=== PATIENT | female | born 1960 | race Caucasian/White ===

== ENCOUNTER → 2016-07-29 | Outpatient (CLI) | payer BC ==
--- NOTE | 2016-08-01 08:21 | XR ---
Fourth digit right hand HISTORY: Trauma and pain, dislocation 2 views of the fourth digit of the right hand. No comparisons Small sclerotic focus at the tuft of the fourth digit is nonaggressive and could represent a small [place]. Digit is flexed distally, correlate to exclude ligamentous injury. IMPRESSION: No acute osseous abnormality, additional findings above. Follow-up as indicated.
== END | disposition home or self-care (01) ==
LOC: RADXRYALE 10:05
PROVIDERS: ATTEND Family Medicine
DX: S63.259A Unspecified dislocation of unspecified finger, initial encounter (principal); X58.XXXA Exposure to other specified factors, initial encounter

== ENCOUNTER → 2017-02-17 | Outpatient (CLI) | payer BC ==
--- NOTE | 2017-02-21 11:25 | MM ---
Reason for exam: screening (asymptomatic). Last mammogram was performed 9 years and 7 months ago. Physical Findings: A clinical breast exam by your physician is recommended on an annual basis and results should be correlated with mammographic findings. MG Screening Mammo w CAD Bilateral CC and MLO view(s) were taken. Prior study comparison: July 23, 2007, bilateral screening mammogram w/CAD. There are scattered fibroglandular densities. ASSESSMENT: Negative, BI-RAD 1 RECOMMENDATION: Routine screening mammogram of both breasts in 1 year.
== END | disposition home or self-care (01) ==
LOC: RADMAMWWP 08:51
PROVIDERS: ATTEND Family Medicine
DX: Z12.31 Encounter for screening mammogram for malignant neoplasm of breast (principal)

== ENCOUNTER → 2017-12-04 | Outpatient (CLI) | payer BC ==
--- NOTE | 2017-12-04 10:20 | XR ---
EXAMINATION TYPE: XR knee complete RT DATE OF EXAM: 12/04/2017 COMPARISON: NONE HISTORY: Pain TECHNIQUE: Four views are submitted. FINDINGS: Joint spaces are preserved. Osseous structures are intact. No acute fracture seen. Postsurgical ch von involving the tibia with diffuse osteopenia. Arthropathy of the knee joint. Arthropathy of the p atellofemoral joint. IMPRESSION: 1. No acute fracture or dislocation. 2. Arthritic changes with postsurgical changes.
--- NOTE | 2017-12-04 10:27 | XR ---
EXAMINATION TYPE: XR shoulder complete RT DATE OF EXAM: 12/04/2017 COMPARISON: NONE HISTORY: Pain TECHNIQUE: Three views are submitted. FINDINGS: The osseous structures are intact. There is no acute fracture or dislocation. The AC joint is there is significant arthropathy of the AC joint. IMPRESSION: 1. No acute process.
== END | disposition home or self-care (01) ==
LOC: RADXRYALE 09:34
PROVIDERS: ATTEND Family Medicine
DX: M17.11 Unilateral primary osteoarthritis, right knee (principal); M25.511 Pain in right shoulder; Z98.890 Other specified postprocedural states

== ENCOUNTER → 2019-05-09 | Outpatient (CLI) | payer BC ==
--- NOTE | 2019-05-10 11:41 | MM ---
Reason for exam: screening (asymptomatic). Last mammogram was performed 2 years and 3 months ago. Physical Findings: A clinical breast exam by your physician is recommended on an annual basis and results should be correlated with mammographic findings. MG 3D Screening Mammo W/Cad Bilateral CC and MLO view(s) were taken. Prior study comparison: February 17, 2017, bilateral MG screening mammo w CAD. July 23, 2007, bilateral screening mammogram w/CAD. The breast tissue is heterogeneously dense. This may lower the sensitivity of mammography. There is no discrete abnormality. ASSESSMENT: Negative, BI-RAD 1 RECOMMENDATION: Routine screening mammogram of both breasts in 1 year.
== END | disposition home or self-care (01) ==
LOC: RADMAMWWP 14:54
PROVIDERS: ATTEND Family Medicine
DX: Z12.31 Encounter for screening mammogram for malignant neoplasm of breast (principal)
CPT/HCPCS: 77063; 77067

== ENCOUNTER → 2020-11-02 | Outpatient (CLI) | payer BC ==
[2020-11-02 10:14] LABS: Basophils % (A) 0 %; Eosinophils # (A) 0.1 k/uL (0-0.7); Eosinophils % (A) 1 %; HCT 39.5 % (34.0-46.0); HGB 13.9 gm/dL (11.4-16.0); Lymphocytes # (A) 1.1 k/uL (1.0-4.8); Lymphocytes % (A) 15 %; MCH 29.4 pg (25.0-35.0); MCHC 35.1 g/dL (31.0-37.0); MCV 83.7 fL (80.0-100.0); Mean Platelet Volume 7.2; Monocytes # (A) 0.5 k/uL (0-1.0); Monocytes % (A) 7 %; Neutrophils # (A) 5.4 k/uL (1.3-7.7); Neutrophils % (A) 75 %; Platelet Count 206 k/uL (150-450); RBC 4.72 m/uL (3.80-5.40); RDW 12.6 % (11.5-15.5); WBC 7.2 k/uL (3.8-10.6)
== END | disposition home or self-care (01) ==
LOC: LABPAT 08:25
PROVIDERS: ATTEND Obstetrics & Gynecology
DX: Z01.818 Encounter for other preprocedural examination (principal)
CPT/HCPCS: 36415; 85025

== ENCOUNTER 2020-11-09 06:14 | Day surgery (SDC) | payer BC ==
[2020-11-03 11:48] VITALS: BMI 42.9
--- NOTE | 2020-11-06 15:11 | P.HPOB ---
History of Present Illness H&P Date: 11/06/20 Chief Complaint: Fluid collection in the uterus is menopausal Dunia is a 60-year-old female with fluid in her uterus. She is scheduled for D&C with hysteroscopy to fully evaluate. Risks/benefits/alternatives were reviewed with the patient in detail and all questions were answered for her prior to proceeding to the operative. Past Medical History Past Medical History: GERD/Reflux, Musculoskeletal Disorder, Sleep Apnea/CPAP/BIPAP Additional Past Medical History / Comment(s): uses CPAP, IBS, chronic back pain, herniated disc, frequent sciatic nerve pain down right side History of Any Multi-Drug Resistant Organisms: None Reported Past Surgical History: Cholecystectomy, Orthopedic Surgery Additional Past Surgical History / Comment(s): ORIF right lower leg, colonoscopy, EGD's, cystoscopy Past Anesthesia/Blood Transfusion Reactions: Postoperative Nausea & Vomiting (PONV) Smoking Status: Never smoker Medications and Allergies Home Medications Medication Instructions Recorded Confirmed Type Pantoprazole Sodium [Protonix] 40 mg PO DAILY 04/20/14 11/03/20 History Cholecalciferol [Vitamin D3 (25 25 mcg PO DAILY 11/03/20 11/03/20 History Mcg = 1000 Iu)] Fish Oil/Dha/Epa [Fish Oil 1,200 1 each PO DAILY 11/03/20 11/03/20 History mg Fish Oil] Venlafaxine HCl [Effexor] 75 mg PO HS 11/03/20 11/03/20 History Allergies Allergy/AdvReac Type Severity Reaction Status Date / Time bupropion HCl Allergy Rapid Verified 11/03/20 11:26 [From Wellbutrin] Heart Rate indomethacin [From Indocin] Allergy Nausea & Verified 11/03/20 11:26 Vomiting & Diarrhea indomethacin sodium Allergy Nausea & Verified 11/03/20 11:26 [From Indocin] Vomiting & Diarrhea Exam Osteopathic Statement: *. No significant issues noted on an osteopathic structural exam other than those noted in the History and Physical/Consult. - OBG Physical Exam Breast: both: normal (no masses) Abdomen: bowel sounds normal, no diffuse tenderness, no bruit present, no guarding noted, no hepatomegaly, no splenomegaly, no mass Vulva: both: normal Vagina: normal moisture, no discharge Cervix: no lesion, no discharge Uterus: normal size, normal contour Adnexa: both: normal Anus/Rectum: normal perianal skin, no rectal mass, no hemorrhoids, heme negative
[~2020-11-09 06:14] MED LIST: Pre Op ABX Message 1 EACH MISC MISCELLANE ONE
[2020-11-09] MEDS ORDERED: LIDOCAINE 1% (10MG/ML) FOR IV START INTRADERMA PRN (06:27)
[2020-11-09] MEDS ORDERED: LACTATED RINGERS 1,000 ML IV SCH (06:27)
[2020-11-09] MEDS ORDERED: fentaNYL (PF) 50 MCG/ML 2 ML AMP IV PRN (07:00)
[2020-11-09] MEDS ORDERED: ONDANSETRON 4 MG/2 ML VIAL ONE (07:00)
[2020-11-09] MEDS ORDERED: DEXAMETHASONE SOD PHOSPHATE 10 MG/ML 1 ML VIAL IV ONE (07:03)
[2020-11-09] MEDS ORDERED: ONDANSETRON 4 MG/2 ML VIAL IVP ONE (07:03)
[2020-11-09] MEDS ORDERED: SUCCINYLCHOLINE CHLORIDE 100 MG/5 ML SYR IV ONE (07:28)
[2020-11-09] MEDS ORDERED: PROPOFOL 10 MG/ML 20 ML VIAL IV ONE (07:28)
[2020-11-09] MEDS ORDERED: MIDAZOLAM 2 MG/2 ML VIAL ONE (07:28)
[2020-11-09] MEDS ORDERED: LIDOCAINE 1% INJ 10MG/ML (20 ML MDV) ONE (07:28)
[2020-11-09] MEDS ORDERED: fentaNYL (PF) 50 MCG/ML 2 ML AMP ONE (07:28)
[2020-11-09 08:06] VITALS: RESP 16; TEMP 97.5
--- NOTE | 2020-11-09 08:12 | P.OP ---
Date of Procedure: 11/09/20 Preoperative Diagnosis: Postmenopausal bleeding Postoperative Diagnosis: Same Procedure(s) Performed: D&C with hysteroscopy Anesthesia: TYE Surgeon: Janusz Cortes Estimated Blood Loss (ml): 3 IV fluids (ml): 400 Pathology: other (Uterine curettings) Condition: stable Disposition: same day Operative Findings: Pathology pending Description of Procedure: Patient was taken to the operating suite where a general anesthetic was found be adequate. She was prepped and draped in the normal sterile fashion and placed in the dorsal lithotomy position. Initially a weighted speculum was inserted in the vagina and the anterior lip cervix identified and grasped with an Allis clamp. It was then dilated. Mucus the solution was noted immediately on entry and was collected on Telfa. Once the cervix was fully dilated camera was inse rted no gross pathology was noted therefore camera was removed and sharp curettings of the endometrium were obtained. All tissues collected, placed on Telfa, and sent to pathology for evaluation. All incidents were then removed. Sponge, lap, needle counts were all correct 2. Patient was then taken to the recovery room in stable and satisfactory condition. Plan - Discharge Summary Discharge Rx Participant: No New Discharge Prescriptions: New Ibuprofen [Motrin] 600 mg PO Q6HR PRN #30 tab PRN Reason: Pain No Action Pantoprazole Sodium [Protonix] 40 mg PO DAILY Cholecalciferol [Vitamin D3 (25 Mcg = 1000 Iu)] 25 mcg PO DAILY Venlafaxine HCl [Effexor] 75 mg PO HS Fish Oil/Dha/Epa [Fish Oil 1,200 mg Fish Oil] 1 each PO DAILY Discharge Medication List Pantoprazole Sodium [Protonix] 40 mg PO DAILY 04/20/14 [History] Cholecalciferol [Vitamin D3 (25 Mcg = 1000 Iu)] 25 mcg PO DAILY 11/03/20 [History] Fish Oil/Dha/Epa [Fish Oil 1,200 mg Fish Oil] 1 each PO DAILY 11/03/20 [History] Venlafaxine HCl [Effexor] 75 mg PO HS 11/03/20 [History] Ibuprofen [Motrin] 600 mg PO Q6HR PRN #30 tab 11/09/20 [Rx] Follow up Appointment(s)/Referral(s): Janusz Cortes DO [Doctor of Osteopathic Medicine] - 1 Week Patient Instructions/Handouts: *Surgery [facility] - Dilation & Curettage Home Instructions, *Surgery [facility] - (Anesthesia) Discharge Instructions Outpatient Surgery Activity/Diet/Wound Care/Special Instructions: Heavy lifting, limit stairs and driving, and pelvic rest. If any high temperatures, heavy bleeding, or severe pain call my office Discharge Disposition: HOME SELF-CARE
[2020-11-09] MEDS ORDERED: KETOROLAC 15 MG/ML 1 ML VIAL IVP ONE (08:15)
[2020-11-09 09:28] VITALS: BP 131/75; PULSE 73
== END 2020-11-09 09:32 | disposition home or self-care (01) ==
LOC: OR 06:14
PROVIDERS: ATTEND Obstetrics & Gynecology
DX: N84.0 Polyp of corpus uteri (principal); N95.9 Unspecified menopausal and perimenopausal disorder; K21.9 Gastro-esophageal reflux disease without esophagitis; G47.33 Obstructive sleep apnea (adult) (pediatric); Z99.89 Dependence on other enabling machines and devices; K58.9 Irritable bowel syndrome, unspecified; G89.29 Other chronic pain; M54.9 Dorsalgia, unspecified; M54.31 Sciatica, right side; Z90.49 Acquired absence of other specified parts of digestive tract; Z98.890 Other specified postprocedural states; Z79.899 Other long term (current) drug therapy; Z88.8 Allergy status to other drugs, medicaments and biological substances
CPT/HCPCS: 88305; 58558; J2250; J1100; J2405; J2001; J3010; J1885; J0330; J2704

== ENCOUNTER → 2020-11-27 | Outpatient (CLI) | payer BC ==
--- NOTE | 2020-11-30 11:30 | MM ---
Reason for exam: screening (asymptomatic). Last mammogram was performed 1 year and 7 months ago. History: Patient is postmenopausal. Physical Findings: A clinical breast exam by your physician is recommended on an annual basis and results should be correlated with mammographic findings. MG 3D Screening Mammo W/Cad Bilateral CC, MLO, and XCCL view(s) were taken. Prior study comparison: May 09, 2019, bilateral MG 3d screening mammo w/cad. February 17, 2017, bilateral MG screening mammo w CAD. There are scattered fibroglandular densities. There is no discrete abnormality. No significant changes when compared with prior studies. ASSESSMENT: Negative, BI-RAD 1 RECOMMENDATION: Routine screening mammogram of both breasts in 1 year.
== END | disposition home or self-care (01) ==
LOC: RADMAMWWP 07:39
PROVIDERS: ATTEND Family Medicine
DX: Z12.31 Encounter for screening mammogram for malignant neoplasm of breast (principal); Z78.0 Asymptomatic menopausal state
CPT/HCPCS: 77063; 77067

== ENCOUNTER → 2022-04-26 | Outpatient (CLI) | payer BC ==
--- NOTE | 2022-04-27 08:35 | MM ---
Reason for Exam: Screening (asymptomatic). Last mammogram was performed 1 year(s) and 5 month(s) ago. Patient History: Menarche at age 11. First Full-Term at age 24. Postmenopausal. Risk Values: Nava 5 year model risk: 1.7%. NCI Lifetime model risk: 7.7%. Prior Study Comparison: 02/17/2017 Bilateral Screening Mammogram, [facility]. 05/09/2019 Bilateral Screening Mammogram, [facility]. 11/27/2020 Bilateral Screening Mammogram, [facility]. Tissue Density: The breast tissue is almost entirely fat. Findings: Analyzed By CAD. There is no suspicious group of microcalcifications or new suspicious mass in either breast. Overall Assessment: Negative, BI-RAD 1 Management: Screening Mammogram of both breasts in 1 year. A clinical breast exam by your physician is recommended on an annual basis and results should be correlated with mammographic findings. [facility] will attempt to contact patient to return for supplemental views and ultrasound if indicated. Electronically signed and approved by: Leo Patterson DO
== END | disposition home or self-care (01) ==
LOC: RADMAMWWP 16:53
PROVIDERS: ATTEND Family Medicine
DX: Z12.31 Encounter for screening mammogram for malignant neoplasm of breast (principal); Z78.0 Asymptomatic menopausal state
CPT/HCPCS: 77063; 77067

== ENCOUNTER → 2024-04-05 | Outpatient (CLI) | payer BC ==
--- NOTE | 2024-04-19 12:43 | MM ---
Reason for Exam: Screening (asymptomatic). Last mammogram was performed 1 year(s) and 11 month(s) ago. Patient History: Menarche at age 11. Patient has no children. Postmenopausal. Risk Values: Nava 5 year model risk: 1.8%. NCI Lifetime model risk: 7.2%. Prior Study Comparison: 05/09/2019 Bilateral Screening Mammogram, [facility]. 11/27/2020 Bilateral Screening Mammogram, [facility]. 04/26/2022 Bilateral MG 3D screening mammo w/cad, [facility]. Tissue Density: There are scattered areas of fibroglandular density. Findings: Analyzed By CAD. Right breast: There is no suspicious group of microcalcifications or new suspicious mass. Left breast: There is no suspicious group of microcalcifications or new suspicious mass. Overall Assessment: Negative, BI-RAD 1 Management: Screening Mammogram of both breasts in [address] [facility] will attempt to contact patient to return for supplemental views and ultrasound if indicated. Patient should continue monthly self-breast exams. A clinical breast exam by your physician is recommended on an annual basis. This exam should not preclude additional follow-up of suspicious palpable abnormalities. Note on Nava scores and lifetime risk: 1. A Nava score greater than 3% is considered moderate risk. If this is the case, consider specialist referral to assess eligibility for a risk reducing agent. 2. If overall lifetime risk for the development of breast cancer is 20% or higher, the patient may qualify for future screening with alternating mammogram and breast MRI. [facility], , 04/08/2024 8:39 AM. Electronically signed and approved by: Leo Patterson DO
== END | disposition home or self-care (01) ==
LOC: RADMAMWWP 11:12
PROVIDERS: ATTEND Family Medicine
DX: Z12.31 Encounter for screening mammogram for malignant neoplasm of breast
CPT/HCPCS: 77063; 77067